=== PATIENT | female | born 1990 | race American Indian/Alaskan Native ===

== ENCOUNTER 2016-10-31 13:49 | Emergency (ER) | payer MEDICAID ==
[2016-10-31 13:53] VITALS: BMI 35.4
[2016-10-31 14:52] LABS: RBC URINE < 1 /hpf (0-3); URINE BILIRUBIN NEGATIVE (NEGATIVE); URINE BLOOD NEGATIVE (NEGATIVE); URINE COLOR Yellow (YELLOW); URINE GLUCOSE (UA) NORMAL (Normal); URINE KETONE NEGATIVE (NEGATIVE); URINE LEUKOCYTE ESTERASE NEG Leu/uL (Negative); URINE PROTEIN NEGATIVE (NEGATIVE); URINE UROBILINOGEN NORMAL mg/dL (0.2-1.0); WBC URINE 1 /hpf (0-5)
[2016-10-31] MEDS ORDERED: Gentamicin 240 MG in Sodium Chloride 0.9% 100 ML IM STA (15:09)
--- NOTE | 2016-10-31 15:21 | C.PDOC ---
History Of Present Illness 26 y/o female presents to the ED with complaints of intermittent pelvic pain for the last 5 days with associated vaginal discharge. Pt states her boyfriend was recently diagnosed with an "STD". She denies dysuria, nausea, vomiting, diarrhea, fever. LMP was 2 weeks ago, patient denies suspicion for . Time Seen by Provider: 10/31/16 14:15 Chief Complaint (Nursing): Female Genitourinary History Per: Patient History/Exam Limitations: no limitations Onset/Duration Of Symptoms: Days, Intermittent Episodes Current Symptoms Are (Timing): Still Present Severity: Mild Quality Of Discomfort: "Pain" Associated Symptoms: denies: Fever, Nausea, Vomiting, Diarrhea, Urinary Symptoms Alleviating Factors: None Abnormal Vaginal Bleeding: No Past Medical History Reviewed: Historical Data, Nursing Documentation, Vital Signs Vital Signs: Last Vital Signs Temp 97.9 F 10/31/16 15:41 Pulse 68 10/31/16 15:41 Resp 18 10/31/16 15:41 BP 115/77 10/31/16 15:41 Pulse Ox 100 10/31/16 15:45 - Medical History PMH: Bronchitis Surgical History: Cholecystectomy, Tonsillectomy Family History: States: No Known Family Hx - Social History Hx Alcohol Use: No Hx Substance Use: No - Immunization History Hx Tetanus Toxoid Vaccination: No Hx Influenza Vaccination: No Hx Pneumococcal Vaccination: No Review Of Systems Except As Marked, All Systems Reviewed And Found Negative. Constitutional: Negative for: Fever Cardiovascular: Negative for: Chest Pain Gastrointestinal: Negative for: Nausea, Vomiting, Diarrhea Genitourinary: Positive for: Vaginal Discharge, Pelvic Pain. Negative for: Dysuria, Hematuria, Vaginal Bleeding Physical Exam - Physical Exam Appears: Well, Non-toxic, No Acute Distress Skin: Warm, Dry, No Rash Cardiovascular: Rhythm Regular Respiratory: Normal Breath Sounds, No Rales, No Rhonchi, No Wheezing Gastrointestinal/Abdominal: Normal Exam, Bowel Sounds, Soft, No Tenderness Pelvic: Normal External Exam, No Vaginal Bleeding, Vaginal Discharge (scant white discharge in vault), No Cervical Motion Tenderness, No Cervix Open, No Adnexal Tenderness, No Tender Uterus, Other (no vesicular lesions) Extremity: Bilateral: Atraumatic Neurological/Psych: Oriented x3 ED Course And Treatment O2 Sat by Pulse Oximetry: 100 (room air) Pulse Ox Interpretation: Normal Progress Note: UA and Upreg negative. GC swab sent to lab. Patient treated with IM Gentamicin, PO Azithromycin. Rx given for Flagyl to cover for trichomomas. Patient instructed to follow up with pourer bull ladle within 1 week, to avoid sex x 1 week and have sexual partner(s) tested/treated. She understands she should return to ED if symtpoms worsen. Reevaluation Time: 15:50 Reassessment Condition: Improved Disposition Counseled Patient/Family Regarding: Studies Performed, Diagnosis, Need For Followup, Rx Given - Disposition Referrals: [facility] [Outside] Disposition: HOME/ ROUTINE Disposition Time: 15:50 Condition: STABLE Additional Instructions: FOLLOW UP WITH YOUR DOCTOR IN 1-2 DAYS USE MEDICATIONS DIRECTED NO SEX X 1 WEEK HAVE SEXUAL PARTNER(S) TESTED/TREATED RETURN TO EMERGENCY ROOM IF SYMPTOMS WORSEN Prescriptions: metroNIDAZOLE [Flagyl] 500 mg PO BID #14 tab Instructions: Cervicitis (ED) Print Language: CITIZEN OF [place] - POA Present On Arrival: None - Clinical Impression Clinical Impression: Pelvic pain, Vaginal discharge, Cervicitis - Scribe Statement The provider has reviewed the documentation as recorded by the Brian De La Cruz Provider Attestation: All medical record entries made by the Brian were at my direction and personally dictated by me. I have reviewed the chart and agree that the record accurately reflects my personal performance of the history, physical exam, medical decision making, and the department course for this patient. I have also personally directed, reviewed, and agree with the discharge instructions and disposition.
[2016-10-31 15:41] VITALS: BP 115/77; PULSE 68; RESP 18; TEMP 97.9
[2016-10-31 15:43] VITALS: O2SAT 100
[2016-10-31] MEDS: Gentamicin 80 mg/2mL Inj. IM ONE ×2 (15:54→15:55)
== END 2016-10-31 15:54 | disposition home or self-care (01) ==
LOC: C.ER 13:49
DX: N72 Inflammatory disease of cervix uteri (principal); N89.8 Other specified noninflammatory disorders of vagina; R10.2 Pelvic and perineal pain
CPT/HCPCS: 81001; 84703; 87086; 87491; 87591; 96372; 99284; J1580